=== PATIENT | male | born 1990 | race Caucasian/White ===

== ENCOUNTER 2025-03-06 17:01 | Emergency (ER) | payer SELFPAY ==
[~2025-03-06] VITALS: Ht 175.3 cm; Wt 153.0 kg
[2025-03-06 17:05] VITALS: BP 137/71; PULSE 72; RESP 16; TEMP 97.3; O2SAT 96
[2025-03-06] MEDS ORDERED: METH-798 PO (20:06)
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
== END 2025-03-06 20:19 | disposition home or self-care (01) ==
LOC: ER 17:02
DX: S13.4XXA Sprain of ligaments of cervical spine, initial encounter (principal); V59.40XA Driver of pick-up truck or van injured in collision with unspecified motor vehicles in traffic accident, initial encounter; Z79.899 Other long term (current) drug therapy; Y93.89 Activity, other specified; Y92.89 Other specified places as the place of occurrence of the external cause; Y99.8 Other external cause status
CPT/HCPCS: 99283